=== PATIENT | male | born 1945 | race Caucasian/White ===

== ENCOUNTER 2018-05-05 16:23 | Emergency (ER) | payer MEDICARE, OTHER ==
[~2018-05-05] VITALS: Ht 175.3 cm; Wt 88.6 kg
[~2018-05-05 16:23] MED LIST: ASPI-1264 PO; ASPI-41 PO; ATOR10TA87 PO; COL100C PO; IBUP-1984 PO; LEVO25TA50 PO; LOP25T PO; NORCO10T PO; UBID100C16 PO; VALS80TA2 PO; [UNRECOGNIZED DRUG - CODE] PO
[2018-05-05 16:24] VITALS: BP 134/75
[2018-05-05] MEDS ORDERED: ibuprofen tablet 400 MG TABLET PO ONE (17:05)
[2018-05-05] MEDS ORDERED: acetaminophen 325mg tablet PO ONE (17:05)
[2018-05-05] MEDS ORDERED: HYDROcodone/acetaminophen 10/325mg tab PO ONE (17:20)
[2018-05-05] MEDS ORDERED: LORazepam 0.5 MG tablet PO PRN (17:20)
== END 2018-05-05 18:13 | disposition home or self-care (01) ==
LOC: ER 16:23
DX: S61.213A Laceration without foreign body of left middle finger without damage to nail, initial encounter (principal); S61.211A Laceration without foreign body of left index finger without damage to nail, initial encounter; I25.10 Atherosclerotic heart disease of native coronary artery without angina pectoris; E78.00 Pure hypercholesterolemia, unspecified; I10 Essential (primary) hypertension; Z95.1 Presence of aortocoronary bypass graft; Z88.5 Allergy status to narcotic agent; Z79.82 Long term (current) use of aspirin; Z79.899 Other long term (current) drug therapy; W31.2XXA Contact with powered woodworking and forming machines, initial encounter; Y93.89 Activity, other specified; Y92.89 Other specified places as the place of occurrence of the external cause; Y99.9 Unspecified external cause status
CPT/HCPCS: 12001; 12002; 73140; 99284

== ENCOUNTER 2018-05-09 10:30 | Emergency (ER) | payer MEDICARE, OTHER | END 2018-05-09 11:07 | disposition left against medical advice (07) | LOC: ER 10:31 | DX: S61.211D Laceration without foreign body of left index finger without damage to nail, subsequent encounter (principal); S61.213D Laceration without foreign body of left middle finger without damage to nail, subsequent encounter; Z48.02 Encounter for removal of sutures; Z53.21 Procedure and treatment not carried out due to patient leaving prior to being seen by health care provider; X58.XXXD Exposure to other specified factors, subsequent encounter ==

== ENCOUNTER 2019-08-02 09:53 | Outpatient (CLI) | payer MEDICARE, OTHER ==
[~2019-08-02 09:53] MED LIST changes: +atropine 1 MG/1 ML vial ONE; +epiNEPHrine 0.1mg/ml 10ml syringe ONE
== END 2019-08-02 23:59 | disposition home or self-care (01) ==
LOC: RAD 09:53
PROVIDERS: ATTEND Orthopaedic Surgery
DX: M50.123 Cervical disc disorder at C6-C7 level with radiculopathy (principal); M48.02 Spinal stenosis, cervical region
CPT/HCPCS: 72141; J0171; J0461

== ENCOUNTER 2021-09-10 08:34 | Day surgery (SDC) | payer MEDICARE, OTHER ==
[~2021-09-10] VITALS: Ht 175.3 cm; Wt 93.2 kg
[~2021-09-10 08:34] MED LIST changes: -atropine 1 MG/1 ML vial ONE; -epiNEPHrine 0.1mg/ml 10ml syringe ONE
[2021-09-10 08:45] VITALS: BP 167/103
[2021-09-10] MEDS ORDERED: IRBE300T18 PO (09:09)
[2021-09-10] MEDS ORDERED: ATOR40TA71 PO (09:10)
[2021-09-10] MEDS ORDERED: CITA20TA27 PO (09:11)
[2021-09-10] MEDS ORDERED: ATOR-2 PO (09:11)
[2021-09-10] MEDS ORDERED: EZET10TA6 PO (09:12)
[2021-09-10] MEDS ORDERED: LEVO50CA4 PO (09:20)
[2021-09-10] MEDS ORDERED: fentaNYL/PF 50MCG/1 ML 2ML syringe ONE (09:23)
[2021-09-10] MEDS ORDERED: MIDAZolam 1 MG/ML 5ML VIAL ONE (09:24)
[2021-09-10 10:00] VITALS: BP 158/86
[2021-09-10 10:10] VITALS: BP 155/87
[2021-09-10 10:20] VITALS: BP 157/89
[2021-09-10 10:30] VITALS: BP 162/85
[2021-09-10] MEDS ORDERED: hydrochlorothiazide PO (10:34)
[2021-09-10] MEDS ORDERED: fish oil PO (10:35)
[2021-09-10] MEDS ORDERED: ASPI-611 PO (10:35)
[2021-09-10] MEDS ORDERED: calcium PO (10:36)
== END 2021-09-10 10:55 | disposition home or self-care (01) ==
LOC: GI LAB 08:34
PROVIDERS: ATTEND Internal Medicine Gastroenterology
DX: K62.5 Hemorrhage of anus and rectum (principal); K57.30 Diverticulosis of large intestine without perforation or abscess without bleeding; K64.8 Other hemorrhoids; D12.3 Benign neoplasm of transverse colon; K63.5 Polyp of colon; K63.89 Other specified diseases of intestine; K62.89 Other specified diseases of anus and rectum; I10 Essential (primary) hypertension; Z72.89 Other problems related to lifestyle; Z95.1 Presence of aortocoronary bypass graft; Z79.899 Other long term (current) drug therapy
CPT/HCPCS: 45380; 45381; 45385; 88305; C1773; G0500; J2250; J3010; J7030; Z7512; 50555; 99152; 99153; A4620